=== PATIENT | female | born 1995 | race Caucasian/White ===

== ENCOUNTER 2016-10-27 20:17 | Observation (INO) | payer MEDICAID ==
[~2016-10-27 20:17] MED LIST: IRONTAB35 OR; PREN-129 OR
[2016-10-27 21:22] LABS: Urine Bilirubin Negative (Negative); Urine Blood Negative /uL (Negative); Urine Color Yellow (Yellow); Urine Glucose Normal (Normal); Urine Ketone Negative (Negative); Urine Nitrite Negative (Negative); Urine RBC <1 /hpf (0 - 4); Urine Squamous Epithelial Cell FEW /hpf (<5); Urine Urobilinogen Normal (Negative); Urine pH 7.5 (5.0-8.0)
== END 2016-10-27 21:48 | disposition home or self-care (01) | DRG 566 ==
LOC: LDRP 20:17
PROVIDERS: ADMIT Obstetrics & Gynecology; ATTEND Obstetrics & Gynecology
DX: O26.893 Other specified pregnancy related conditions, third trimester (principal); R10.9 Unspecified abdominal pain; Z3A.30 30 weeks gestation of pregnancy
CPT/HCPCS: 59025; 81001; G0378; G0434

== ENCOUNTER 2016-12-13 16:30 | Observation (INO) | payer MEDICAID | END 2016-12-13 17:50 | disposition home or self-care (01) | DRG 566 | LOC: LDRP 16:30 | PROVIDERS: ADMIT Obstetrics & Gynecology; ATTEND Obstetrics & Gynecology | DX: O36.8130 Decreased fetal movements, third trimester, not applicable or unspecified (principal); Z3A.37 37 weeks gestation of pregnancy | CPT/HCPCS: 59025; 76818; 81002; G0378 ==

== ENCOUNTER 2016-12-18 07:35 | Observation (INO) | payer MEDICAID | END 2016-12-18 09:40 | disposition home or self-care (01) | DRG 566 | LOC: LDRP 07:35 | PROVIDERS: ADMIT Specialist; ATTEND Specialist | DX: O36.8130 Decreased fetal movements, third trimester, not applicable or unspecified (principal); O69.81X0 Labor and delivery complicated by cord around neck, without compression, not applicable or unspecified; Z3A.38 38 weeks gestation of pregnancy | CPT/HCPCS: 59025; 76818; 81002; G0378 ==

== ENCOUNTER 2016-12-25 15:55 | Observation (INO) | payer MEDICAID | END 2016-12-25 17:25 | disposition home or self-care (01) | DRG 566 | LOC: LDRP 15:55 | PROVIDERS: ADMIT Specialist; ATTEND Specialist | DX: O36.8190 Decreased fetal movements, unspecified trimester, not applicable or unspecified (principal); O99.89 Other specified diseases and conditions complicating pregnancy, childbirth and the puerperium; M54.9 Dorsalgia, unspecified; Z3A.00 Weeks of gestation of pregnancy not specified | CPT/HCPCS: 59025; 76818; 81002; G0378 ==

== ENCOUNTER 2016-12-27 12:30 | Observation (INO) | payer MEDICAID | END 2016-12-27 14:30 | disposition home or self-care (01) | DRG 566 | LOC: LDRP 12:30 | PROVIDERS: ADMIT Obstetrics & Gynecology; ATTEND Obstetrics & Gynecology | DX: O36.8130 Decreased fetal movements, third trimester, not applicable or unspecified (principal); Z3A.39 39 weeks gestation of pregnancy | CPT/HCPCS: 59025; 76818; 81002; G0378 ==

== ENCOUNTER 2016-12-27 21:12 | Inpatient (IN) | payer MEDICAID ==
[~2016-12-27] VITALS: Ht 162.6 cm; Wt 77.1 kg
[2016-12-27] MEDS ORDERED: LACTATED RINGER'S 1,000 ML IV SCH (22:00)
[2016-12-27] MEDS ORDERED: LACT. RINGERS/OXYTOCIN 20UNITS 1,000 ML IV SCH (22:00)
[2016-12-27] MEDS ORDERED: LIDOCAINE 1% HCL (LOCAL ANESTH.) INJ 20ML MDV IJ ONE (22:00)
[2016-12-27] MEDS ORDERED: WITCH HAZEL-GLYCERIN PAD TOP PRN (22:00)
[2016-12-27] MEDS ORDERED: DERMOPLAST 60ML BOTTLE TOP PRN (22:00)
[2016-12-27] MEDS ORDERED: METHYLERGONOVINE MALEATE 0.2 MG/ML AMP IM PRN (22:00)
[2016-12-27] MEDS ORDERED: PHISODERM TOP SOLN 240ML BTL TOP PRN (22:00)
[2016-12-27 22:34] LABS: Urine RBC None Seen /hpf (0 - 4)
[2016-12-27 22:42] LABS: Urine Bilirubin Negative (Negative); Urine Blood Negative /uL (Negative); Urine Color Yellow (Yellow); Urine Glucose Normal (Normal); Urine Ketone 1+ (Negative); Urine Mucus FEW (None Seen); Urine Nitrite Negative (Negative); Urine Squamous Epithelial Cell FEW /hpf (<5); Urine Urobilinogen Normal (Negative)
[2016-12-27 22:44] LABS: Basophils # (auto) 0 uL; Basophils % (auto) 0.4 % (0.0-2.0); Eosinophils # (auto) 0 uL; Eosinophils % (auto) 0.4 % (0.0-7.0); Hematocrit 34.5 % (36.0-46.0); Hemoglobin 11.2 g/dL (12.2-16.2); Lymphocytes # (auto) 2.2 uL; Lymphocytes % (auto) 17.6 % (10.0-50.0); Mean Corpuscular Hemoglobin 27.7 pg (28.0-32.0); Mean Corpuscular Hgb Conc. 32.4 g/dL (32.0-36.0); Mean Corpuscular Volume 85.6 fL (80.0-100.0); Mean Platelet Volume 8.5 fL (7.4-10.4); Neutrophils # (auto) 9.3 uL; Neutrophils % (auto) 73.6 % (37.0-80.0); Platelet Count (auto) 318 10^3/uL (140-450); Red Cell Distribution Width 15.3 % (11.6-16.0); White Blood Cell 12.6 10^3/uL (4.4-10.8)
[2016-12-27 23:05] LABS: Albumin 2.4 g/dL (3.4-5.0); Bilirubin, Total 0.4 mg/dL (0.2-1.0); Calcium 8.4 mg/dL (8.5-10.1); Potassium 3.9 mmol/L (3.5-5.1); Total Protein 6.4 g/dL (6.4-8.2)
[2016-12-27 23:23] LABS: INR 0.94 (0.9-1.15); Partial Thromboplastin Time 24.8 sec (22.64-33.71); Prothrombin Time 10.1 sec (9.37-12.3)
[2016-12-28] MEDS ORDERED: TERBUTALINE SULFATE 1 MG/ML 1ML VIAL SC ONE (05:45)
[2016-12-28] MEDS: NALBUPHINE HCL 10 MG/1ml INJECTION IV PRN ×2 (07:39→10:37)
[2016-12-28] MEDS: ONDANSETRON HCL 4 MG/2 ML VIAL IV PRN ×2 (09:20→16:34)
[2016-12-28] MEDS ORDERED: fentaNYL W ROPIVACAINE 150 ML EPI ONE (11:29)
[2016-12-28] MEDS ORDERED: fentaNYL CITRATE 100 MCG/2 ML VL ONE (11:29)
[2016-12-28] MEDS ORDERED: LIDOCAINE HCL 2 %PF INJ 10ML AMP IJ ONE ×3 (11:29→13:00)
[2016-12-28] MEDS ORDERED: fentaNYL W ROPIVACAINE 150 ML EPI SCH ×2 (11:30→13:00)
[2016-12-28] MEDS ORDERED: fentaNYL CITRATE 100 MCG/2 ML VL IV ONE ×2 (11:30→13:00)
[2016-12-28] MEDS ORDERED: ePHEDrine SULFATE 50 MG/ML AMP IV ONE ×2 (11:30→13:00)
[2016-12-28] MEDS ORDERED: NALOXONE HCL 0.4 MG/ML VIAL IV ONE ×2 (11:30→13:00)
[2016-12-28] MEDS ORDERED: SODIUM CHLORIDE LOCK 10 ML ONE (12:10)
[2016-12-28] MEDS ORDERED: SODIUM CHLORIDE 0.9% 500 ML IV PRN (12:51)
[2016-12-28] MEDS ORDERED: LIDOCAINE 2%HCL (LOCAL ANESTH.) INJ 20ML MDV IJ ONE (13:00)
[2016-12-28] MEDS ORDERED: LACT. RINGERS/OXYTOCIN 20UNITS 500 ML IV ONE (16:29)
[2016-12-28] MEDS: IBUPROFEN 600 MG TAB PO PRN ×2 (18:03→23:43)
[2016-12-28 19:05] VITALS: BP 130/77
[2016-12-28] MEDS: ACETAMINOPHEN 325 MG TAB PO PRN (19:20)
[2016-12-28 23:30] VITALS: BP 121/87
[2016-12-29 03:30] VITALS: BP 129/87
[2016-12-29] MEDS: ACETAMINOPHEN 325 MG TAB PO PRN ×2 (03:50→12:01)
[2016-12-29 08:20] VITALS: BP 103/63
[2016-12-29 12:10] VITALS: BP 104/70
== END 2016-12-29 15:25 | disposition home or self-care (01) | DRG 560 ==
LOC: NUR 21:12 → LDRP 21:44
PROVIDERS: ADMIT Obstetrics & Gynecology; ATTEND Obstetrics & Gynecology
PROC: 0UQMXZZ Repair Vulva, External Approach (ICD-10-PCS; principal; 2016-12-28)
PROC: 10E0XZZ Delivery of Products of Conception, External Approach (ICD-10-PCS; 2016-12-28)
PROC: 3E0S3CZ (ICD-10-PCS; 2016-12-28)
PROC: 00HU33Z Insertion of Infusion Device into Spinal Canal, Percutaneous Approach (ICD-10-PCS; 2016-12-28)
DX: O69.81X0 Labor and delivery complicated by cord around neck, without compression, not applicable or unspecified (principal); O71.82 Other specified trauma to perineum and vulva; Z37.0 Single live birth; Z3A.39 39 weeks gestation of pregnancy; Z88.7 Allergy status to serum and vaccine
CPT/HCPCS: 36415; 51702; 59025; 59409; 80053; 81001; 85025; 85610; 85730; 86850; 86900; 86901; 96365; 96366; 96372; 96374; 96375; G0434; J2405; J2590; J3010

== ENCOUNTER 2019-07-18 11:01 | Outpatient (CLI) | payer MEDICAID | END 2019-07-18 13:56 | disposition home or self-care (01) | LOC: OB 11:01 | PROVIDERS: ATTEND Specialist | DX: O36.8390 Maternal care for abnormalities of the fetal heart rate or rhythm, unspecified trimester, not applicable or unspecified (principal); Z98.890 Other specified postprocedural states | CPT/HCPCS: 59025; 76818; 81002; 84112 ==

== ENCOUNTER 2019-07-24 11:30 | Observation (INO) | payer MEDICAID ==
[2019-07-24 12:46] LABS: Basophils # (auto) 0 uL; Basophils % (auto) 0.3 % (0.0-2.0); Eosinophils # (auto) 0.1 uL; Eosinophils % (auto) 0.9 % (0.0-7.0); Hematocrit 31.8 % (36.0-46.0); Hemoglobin 10.7 g/dL (12.2-16.2); Lymphocytes # (auto) 1.6 uL; Lymphocytes % (auto) 13.1 % (10.0-50.0); Mean Corpuscular Hemoglobin 28.4 pg (28.0-32.0); Mean Corpuscular Hgb Conc. 33.6 g/dL (32.0-36.0); Mean Corpuscular Volume 84.7 fL (80.0-100.0); Monocytes # (auto) 1.1 uL; Monocytes % (auto) 9.2 % (0.0-12.0); Neutrophils # (auto) 9.1 uL; Neutrophils % (auto) 76.5 % (37.0-80.0); Platelet Count (auto) 294 10^3/uL (140-450); Red Blood Cells 3.75 10^6/uL (4.0-5.20); Red Cell Distribution Width 14.5 % (11.8-14.3); White Blood Cell 11.9 10^3/uL (4.4-10.8)
[2019-07-24 12:58] LABS: Urine Bacteria FEW /hpf (None Seen); Urine Blood Negative /uL (Negative); Urine Mucus FEW (None Seen); Urine Specific Gravity 1.009 (1.001-1.035); Urine WBC 7 /hpf (0 - 5)
[2019-07-24 13:05] LABS: INR 0.95 (0.9-1.15); Partial Thromboplastin Time 24.7 sec (23.64-32.05)
[2019-07-24 13:07] LABS: Albumin 2.5 g/dL (3.4-5.0); Calcium 8.5 mg/dL (8.5-10.1); Potassium 3.2 mmol/L (3.5-5.1); Uric Acid 4.8 mg/dL (2.6-6.0)
[2019-07-24 13:10] LABS: Bilirubin, Total 0.5 mg/dL (0.2-1.0); Total Protein 6.3 g/dL (6.4-8.2)
[2019-07-24 13:13] LABS: Alcohol, Urine < 3.0 mg/dL (0-5); Amphetamine Screen, Urine NEGATIVE (NEGATIVE); Barbiturate Scree,Urine NEGATIVE (NEGATIVE); Benzodiazephine Screen, Urine NEGATIVE (NEGATIVE); Cannabinoid Screen, Urine NEGATIVE (NEGATIVE); Cocaine Screen, Urine NEGATIVE (NEGATIVE); Opiate Scree,Urine NEGATIVE (NEGATIVE); Phencyclidine Screen, Urine NEGATIVE (NEGATIVE)
[2019-07-25 10:27] LABS: RPR Non Reactive (Non Reactive)
== END 2019-07-24 13:35 | disposition home or self-care (01) | DRG 566 ==
LOC: LDRP 11:30
PROVIDERS: ADMIT Obstetrics & Gynecology; ATTEND Obstetrics & Gynecology
DX: O13.3 Gestational [pregnancy-induced] hypertension without significant proteinuria, third trimester (principal); O26.893 Other specified pregnancy related conditions, third trimester; R11.0 Nausea; Z3A.35 35 weeks gestation of pregnancy
CPT/HCPCS: 36415; 59025; 80053; 80307; 81001; 81002; 84112; 84550; 85025; 85610; 85730; 86592; G0378

== ENCOUNTER 2019-07-31 19:15 | Observation (INO) | payer MEDICAID ==
[~2019-07-31 19:15] MED LIST changes: -IRONTAB35 OR
== END 2019-07-31 23:40 | disposition home or self-care (01) | DRG 566 ==
LOC: LDRP 19:15
PROVIDERS: ADMIT Obstetrics & Gynecology; ATTEND Obstetrics & Gynecology
DX: O9A.213 Injury, poisoning and certain other consequences of external causes complicating pregnancy, third trimester (principal); Z3A.36 36 weeks gestation of pregnancy; W19.XXXA Unspecified fall, initial encounter; Y93.89 Activity, other specified; Y92.89 Other specified places as the place of occurrence of the external cause
CPT/HCPCS: 59025; 76815; 81002; G0378